=== PATIENT | female | born 1980 | race Caucasian/White ===

== ENCOUNTER 2018-01-29 11:21 | Emergency (ER) | payer OTHER ==
[~2018-01-29] VITALS: Ht 167.6 cm; Wt 86.2 kg
[~2018-01-29 11:21] MED LIST: ALPRAZOLAM2 MG PO; BACTRIM DS TAB1 EACH PO; CLEOCIN HCL150 MG PO; CLEOCIN HCL300 MG PO; FLEXERIL PO; IBUPROFEN 600600 M1 PO; KEFLEX500 MG PO; LIDOCAINE VISC100 M1 SWISH&SPIT; NORCO 5-325 TA1 EACH PO; OXYIR 5 MG CAPSU5 M1 PO; OXYIR5 MG PO; PERCOCET 5-3251 EACH PO; PERCOCET 7.5-31 EACH PO; SUBOXONE 4 MG-1 EACH SL; TRAMADOL 50 MG50 MG PO; ZOFRAN ODT4 MG PO; ZPAK PO
[2018-01-29 11:28] VITALS: BP 120/75
[2018-01-29] MEDS ORDERED: BACTRIM DS TAB1 EACH PO (11:42)
[2018-01-29] MEDS ORDERED: ACETAMINOPHEN-1 EAC1 PO (11:42)
[2018-01-29] MEDS ORDERED: KEFLEX500 M1 PO (11:42)
== END 2018-01-29 11:56 | disposition home or self-care (01) ==
LOC: M.ERS 11:21
DX: L03.113 Cellulitis of right upper limb (principal); F17.210 Nicotine dependence, cigarettes, uncomplicated; Z88.0 Allergy status to penicillin; Z88.5 Allergy status to narcotic agent

== ENCOUNTER 2018-06-26 12:41 | Emergency (ER) | payer OTHER ==
[~2018-06-26] VITALS: Ht 165.1 cm; Wt 79.8 kg
[~2018-06-26 12:41] MED LIST changes: +ACETAMINOPHEN-1 EAC1 PO; +KEFLEX500 M1 PO
[2018-06-26] MEDS ORDERED: PERCOCET 5-3251 EACH PO (13:24)
[2018-06-26] MEDS ORDERED: BACTRIM DS TAB1 EACH PO (13:24)
[2018-06-26] MEDS ORDERED: KEFLEX500 M1 PO (13:24)
[2018-06-26 13:34] VITALS: BP 120/71
== END 2018-06-26 13:36 | disposition home or self-care (01) ==
LOC: M.ERS 12:41
DX: T81.49XA Infection following a procedure, other surgical site, initial encounter (principal); Z90.89 Acquired absence of other organs; Z88.8 Allergy status to other drugs, medicaments and biological substances; Z88.0 Allergy status to penicillin; Z88.2 Allergy status to sulfonamides